=== PATIENT | female | born 1990 | race Caucasian/White ===

== ENCOUNTER 2016-11-10 10:45 | Emergency (ER) | payer OTHER ==
[~2016-11-10] VITALS: Ht 172.7 cm; Wt 100.0 kg
[2016-11-10 10:46] VITALS: BP 128/74; PULSE 130; RESP 20; TEMP 100.1; O2SAT 100
[2016-11-10 11:09] VITALS: BP 154/63; PULSE 124; RESP 16; TEMP 101.9; O2SAT 95
[2016-11-10] MEDS ORDERED: ZITHTAB PO (11:11)
--- NOTE | 2016-11-10 11:26 | PD ---
HPI Chief Complaint: ENT Complaint Time Seen by Provider: 11:26 Travel History International Travel<30 days: No Contact w/Intl Traveler<30days: No Traveled to known affect area: No History of Present Illness HPI 26-year-old female came to the emergency room with history of sore throat. Patient says that this has been going on for past 1 week. She was seen at an urgent care where she was diagnosed with strep throat but no test was done. She was given a shot of penicillin and a shot of steroid. She felt better for 3 days but then started to get pain again. She called her primary care who prescribed her Z-Con over the phone. Patient says she has taken 3 days of Z- Con but does not feel any better. She has been unable to drink or eat much. She was tachycardic in triage with a temperature of 101.5. She is otherwise awake and answering questions well. No difficulty breathing. She says she is otherwise a healthy person. PFSH Past Medical History Narrative Medical List of her past medical, surgical, social and family history was reviewed from the nursing note. Respiratory: Yes (STREP THROAT (MULTIPLE TIMES)) Influenza Vaccination: No ?: Unknown LMP: 10/27/2016 Past Surgical History Section: Yes Social History Alcohol Use: Yes (OCCASIONALLY) Tobacco Use: No Substance Use: No Allergies-Medications (Allergen,Severity, Reaction): Coded Allergies: Codeine (Verified Allergy, Intermediate, Hives, 11/10/16) Comments List of her allergies reviewed from the nursing note. Reported Meds & Prescriptions Reported Meds & Active Scripts Active Clindamycin (Clindamycin HCl) 300 Mg Cap 300 Mg PO Q6H 10 Days Ibuprofen 600 Mg Tab 600 Mg PO Q6H PRN Reported Zithromax Z-Con (Azithromycin) 250 Mg Dspk 250 Mg PO DIRECTED 500 MG (2 tabs) day 1, then 1 tab days 2-5. Narrative Medication List of her home medications reviewed from the nursing note. Review of Systems Except as stated in HPI: all other systems reviewed are Neg Physical Exam Narrative GENERAL: Awake, alert, moderate distress SKIN: Focused skin assessment warm/dry. HEAD: Atraumatic. Normocephalic. EYES: Pupils equal and round. No scleral icterus. No injection or drainage. ENT: No nasal bleeding or discharge. Mucous membranes pink and moist. Severe tonsillar adenopathy with exudate, erythema of the pharynx. Submandibular and cervical lymphadenopathy. No stridor NECK: Trachea midline. No JVD. CARDIOVASCULAR: Regular rate and rhythm. No murmur appreciated. RESPIRATORY: No accessory muscle use. Clear to auscultation. Breath sounds equal bilaterally. GASTROINTESTINAL: Abdomen soft, non-tender, nondistended. Hepatic and splenic margins not palpable. MUSCULOSKELETAL: No obvious deformities. No clubbing. No cyanosis. No edema. NEUROLOGICAL: Awake and alert. No obvious cranial nerve deficits. Motor grossly within normal limits. Normal speech. PSYCHIATRIC: Appropriate mood and affect; insight and judgment normal. Data Data Last Documented VS Vital Signs Date Time Temp Pulse Resp B/P Pulse Ox O2 Delivery O2 Flow Rate FiO2 11/10/16 13:22 96 16 95 Nasal Cannula 2 11/10/16 12:35 112/59 11/10/16 11:09 101.9 Orders Basic Metabolic Panel (Bmp) (11/10/16 11:36) Complete Blood Count With Diff (11/10/16 11:36) Blood Culture (11/10/16 11:36) Group A Rapid Strep Screen (11/10/16 11:36) Acetaminophen (Tylenol) (11/10/16 11:45) Dexamethasone Inj (Decadron Inj) (11/10/16 11:45) Sodium Chloride 0.9% Flush (Ns Flush) (11/10/16 11:45) Sodium Chlor 0.9% 1000 Ml Inj (Ns 1000 M (11/10/16 11:45) Lactic Acid (11/10/16 11:36) Ketorolac Inj (Toradol Inj) (11/10/16 11:45) Monoscreen (11/10/16 11:38) Strep Culture (Group A) (11/10/16 11:45) Sodium Chlor 0.9% 1000 Ml Inj (Ns 1000 M (11/10/16 13:15) Ceftriaxone Inj (Rocephin Inj) (11/10/16 13:15) Labs Laboratory Tests Test 11/10/16 11:45 White Blood Count 9.6 TH/MM3 Red Blood Count 4.70 MIL/MM3 Hemoglobin 13.3 GM/DL Hematocrit 39.6 % Mean Corpuscular Volume 84.3 FL Mean Corpuscular Hemoglobin 28.3 PG Mean Corpuscular Hemoglobin 33.5 % Concent Red Cell Distribution Width 14.2 % Platelet Count 129 TH/MM3 Mean Platelet Volume 10.0 FL Neutrophils (%) (Auto) 80.9 % Lymphocytes (%) (Auto) 7.7 % Monocytes (%) (Auto) 11.0 % Eosinophils (%) (Auto) 0.1 % Basophils (%) (Auto) 0.3 % Neutrophils # (Auto) 7.7 TH/MM3 Lymphocytes # (Auto) 0.7 TH/MM3 Monocytes # (Auto) 1.1 TH/MM3 Eosinophils # (Auto) 0.0 TH/MM3 Basophils # (Auto) 0.0 TH/MM3 CBC Comment DIFF FINAL Differential Comment Sodium Level 136 MEQ/L Potassium Level 3.8 MEQ/L Chloride Level 104 MEQ/L Carbon Dioxide Level 26.8 MEQ/L Anion Gap 5 MEQ/L Blood Urea Nitrogen 9 MG/DL Creatinine 0.79 MG/DL Estimat Glomerular Filtration 89 ML/MIN Rate Random Glucose 123 MG/DL Lactic Acid Level 1.0 mmol/L Calcium Level 8.5 MG/DL Monoscreen NEG MDM Medical Decision Making Medical Screen Exam Complete: Yes Emergency Medical Condition: Yes Medical Record Reviewed: Yes Differential Diagnosis Strep throat, infectious mononucleosis Narrative Course 1:04 PM blood test results are back and WBC is within normal limit but she has a left shift. Rapid strep and mono are negative. Patient was given 1 L of IV fluid bolus, Toradol, Tylenol and IM Decadron. Current heart rate is still in 1 teens to 120s. I have ordered another liter of IV fluid bolus and IV 1 g of Rocephin. Reassessed her and patient says she is otherwise feeling 100% better. She says she is little stressed since there is a lot of and her mind. If the heart rate comes down a little bit I will be comfortable discharging her and I have let her know about that. I'll reassess her in a bit once the fluids are done. 1:46 PM second liter of IV fluid has been finished and patient has finished receiving IV Rocephin. Heart rate is down to the 90s. I'm comfortable discharging her home at this point. Procedures EKG Prior to Arrival: No Diagnosis Primary Impression: Tonsillitis with exudate Additional Impression: Pharyngitis Qualified Code: J02.9 - Pharyngitis, unspecified etiology Referrals: Primary Care Physician Additional Instructions: Please return to the ER if the condition worsens or any other new concerns. Otherwise take the medication as per the prescription direction. Try to keep himself hydrated follow-up with your primary care in couple days. Stop taking the Zithromax. Med/Other Pt SpecificInfo: Prescription(s) given Scripts Clindamycin 300 Mg [id number] Mg PO Q6H 10 Days Ref 0 Prov:Juancarlos Jeronimo MD 11/10/16 Ibuprofen 600 Mg [id number] Mg PO Q6H PRN (PAIN) #30 TAB Ref 0 Prov:Juancarlos Jeronimo MD 11/10/16 Disposition: 01 DISCHARGE HOME Condition: Stable Juancarlos Jeronimo MD Nov 10, 2016 11:26
[2016-11-10] MEDS ORDERED: SODIUM CHLORIDE 0.9% FLUSH 10 ML FLUSH IVF PRN (11:45)
[2016-11-10] MEDS ORDERED: KETOROLAC TROMETHAMINE 30 MG/ML (IVP) VIAL IV PUSH ONE (11:45)
[2016-11-10] MEDS ORDERED: DEXAMETHASONE SOD PHOS 4 MG/ML VIAL IM ONE (11:45)
[2016-11-10] MEDS ORDERED: ACETAMINOPHEN 325 MG TAB PO ONE (11:45)
[2016-11-10] MEDS ORDERED: SODIUM CHLOR 0.9% 1000 ML INJ 1,000 ML IV ONE ×2 (11:45→13:15)
[2016-11-10 12:07] LABS: AUTOMATED NEUTROPHIL # 7.7 TH/MM3 (1.8-7.7); BASOPHIL % 0.3 % (0.0-2.0); EOSINOPHIL % 0.1 % (0.0-4.0); HEMATOCRIT 39.6 % (35.0-46.0); HEMO FLAGS DIFF FINAL; LYMPH % 7.7 % (9.0-44.0); LYMPHOCYTE # 0.7 TH/MM3 (1.0-4.8); MEAN CELL VOLUME 84.3 FL (80.0-100.0); MEAN CORPUSCULAR HEMOGLOBIN 28.3 PG (27.0-34.0); MEAN CORPUSCULAR HGB CONC 33.5 % (32.0-36.0); NEUT % 80.9 % (16.0-70.0); PLATELET COUNT 129 TH/MM3 (150-450); RED CELL DISTRIBUTION WIDTH 14.2 % (11.6-17.2); WHITE BLOOD COUNT 9.6 TH/MM3 (4.0-11.0)
[2016-11-10 12:25] LABS: BICARBONATE 26.8 MEQ/L (21.0-32.0); POTASSIUM 3.8 MEQ/L (3.5-5.1)
[2016-11-10 12:35] VITALS: BP 112/59; PULSE 101; RESP 15; O2SAT 96
[2016-11-10] MEDS ORDERED: cefTRIAXone INJ 1,000 MG in SODIUM CHLORIDE 0.9% INJ 100 ML IV ONE (13:15)
[2016-11-10 13:22] VITALS: PULSE 96; RESP 16; O2SAT 95
[2016-11-10] MEDS ORDERED: CLIN1CAP6 PO (13:48)
[2016-11-10] MEDS ORDERED: IBUP-232 PO (13:48)
== END 2016-11-10 14:06 | disposition home or self-care (01) ==
LOC: NEPD 10:45
DX: J03.90 Acute tonsillitis, unspecified (principal)
CPT/HCPCS: 80048; 83605; 85025; 86308; 87040; 87081; 87205; 87880; 96361; 96365; 96375; 99284; J0696; J1100; J1885; J7030